=== PATIENT | female | born 1995 | race Two or more races ===

== ENCOUNTER 2022-08-07 08:21 | Inpatient (IN) | payer MEDICAID ==
[2022-08-07] VITALS (13 sets, daily range): BP systolic 81–121; BP diastolic 52–78
[~2022-08-07] VITALS: Ht 157.5 cm; Wt 66.2 kg
[2022-08-07] MEDS ORDERED: LIDOCAINE 2%HCL (LOCAL ANESTH.) INJ 20ML MDV IJ PRN (09:00)
[2022-08-07] MEDS ORDERED: PROMETHAZINE HCL 25 MG/ML 1ML IV PRN (09:00)
[2022-08-07] MEDS ORDERED: PHISODERM TOP SOLN 240ML BTL TOP PRN (09:00)
[2022-08-07] MEDS ORDERED: WITCH HAZEL-GLYCERIN PAD TOP PRN (09:00)
[2022-08-07] MEDS ORDERED: PROMETHAZINE HCL 25 MG/ML 1ML IM PRN (09:00)
[2022-08-07] MEDS ORDERED: DERMOPLAST 60ML BOTTLE TOP PRN (09:00)
[2022-08-07 09:25] LABS: Albumin 2.6 g/dL (3.4-5.0); Calcium 8.2 mg/dL (8.5-10.1)
[2022-08-07 09:28] LABS: BUN/Creatinine Ratio 5.9 (10.0-20.0); Bilirubin, Total 0.4 mg/dL (0.2-1.0); INR 0.98 (0.9-1.15); Partial Thromboplastin Time 27.3 SEC (24.5-34.5); Total Protein 6.2 g/dL (6.4-8.2)
[2022-08-07] MEDS ORDERED: fentaNYL CITRATE 100 MCG/2 ML VL IV PRN (09:30)
[2022-08-07] MEDS: LACTATED RINGER'S 1,000 ML IV SCH ×4 (09:31→22:58)
[2022-08-07 09:32] LABS: Potassium 2.7 mmol/L (3.5-5.1)
[2022-08-07] MEDS ORDERED: POTASSIUM CHL 20 Meq TABLET PO ONE (09:45)
[2022-08-07] MEDS ORDERED: LACT. RINGERS/OXYTOCIN 20UNITS 500 ML IV ONE ×2 (09:45→10:15)
[2022-08-07 09:53] LABS: Urine Bacteria FEW /hpf (None Seen); Urine Blood 2+ /uL (Negative); Urine Hyaline Cast FEW /lpf (0 - 2); Urine Specific Gravity 1.007 (1.001-1.035); Urine WBC 23 /hpf (0 - 5)
[2022-08-07 10:33] LABS: Alcohol, Urine < 3.0 mg/dL (0-10); Amphetamine Screen, Urine NEGATIVE (NEGATIVE); Barbiturate Scree,Urine NEGATIVE (NEGATIVE); Benzodiazephine Screen, Urine NEGATIVE (NEGATIVE); Cannabinoid Screen, Urine NEGATIVE (NEGATIVE); Cocaine Screen, Urine NEGATIVE (NEGATIVE); Opiate Scree,Urine NEGATIVE (NEGATIVE); Phencyclidine Screen, Urine NEGATIVE (NEGATIVE)
[2022-08-07] MEDS ORDERED: HYDR-4902 PO ×2 (12:22)
[2022-08-07] MEDS ORDERED: DOCU-94 PO ×3 (12:22)
[2022-08-07 12:26] LABS: Basophils # (auto) 0 10 ^3/uL (0-0.2); Eosinophils # (auto) 0 10 ^3/uL (0-0.8); Hemoglobin 8.9 g/dL (12.2-16.2); Mean Corpuscular Hemoglobin 21.5 pg (28.0-32.0); Monocytes # (auto) 0.5 10 ^3/uL (0-1.3); Neutrophils # (auto) 5.7 10 ^3/uL (1.6-8.6); White Blood Cell 7.5 10^3/uL (4.4-10.8)
[2022-08-07] MEDS ORDERED: TETRACAINE 1% INJ 2 ML VIAL IJ ONE (12:26)
[2022-08-07 12:28] LABS: Basophils % (auto) 0.4 % (0.0-2.0); Eosinophils % (auto) 0.4 % (0.0-7.0); Hematocrit 28.4 % (36.0-46.0); Lymphocytes # (auto) 1.3 10 ^3/uL (0.4-5.4); Lymphocytes % (auto) 17.2 % (10.0-50.0); Mean Corpuscular Hgb Conc. 31.2 g/dL (32.0-36.0); Mean Corpuscular Volume 68.8 fL (80.0-100.0); Monocytes % (auto) 6.6 % (0.0-12.0); Neutrophils % (auto) 75.4 % (37.0-80.0); Nucleated Red Blood Cells % 0.4 %; Red Blood Cells 4.13 10^6/uL (4.0-5.20); Red Cell Distribution Width 18.1 % (11.8-14.3)
[2022-08-07] MEDS ORDERED: MORPHINE SULF PF 5 MG/10 ML VIAL ONE (12:28)
[2022-08-07] MEDS ORDERED: CLINDAMYCIN 600MG IV 50 ML IV SCH (12:30)
[2022-08-07] MEDS ORDERED: LACT. RINGERS/OXYTOCIN 20UNITS 1,000 ML IV ONE (12:45)
[2022-08-07] MEDS ORDERED: GUM (CHEWING) 1 GUM CHEW CHEW ONE (12:45)
[2022-08-07] MEDS ORDERED: ONDANSETRON HCL 4 MG/2 ML VIAL IV PRN ×2 (12:45→14:30)
[2022-08-07] MEDS ORDERED: CLINDAMYCIN 300MG IV 100 ML IV SCH ×2 (13:00→21:20)
[2022-08-07] MEDS ORDERED: CLINDAMYCIN 300MG IV 50 ML IV ONE ×2 (13:00)
[2022-08-07] MEDS ORDERED: SODIUM CITR/CITRIC ACID ORAL SOLN 30 ML PO SCH (13:00)
[2022-08-07] MEDS ORDERED: CARBOPROST TROMETHAMINE 250 MCG/1ML VIAL IM ONE (13:19)
[2022-08-07] MEDS ORDERED: ePHEDrine SULFATE 50 MG/ML AMP ONE (13:52)
[2022-08-07] MEDS ORDERED: ONDANSETRON HCL 4 MG/2 ML VIAL ONE ×2 (13:52→14:02)
[2022-08-07] MEDS ORDERED: oxyTOCIN 10 UNIT/ML 10ML VIAL ONE (13:53)
[2022-08-07] MEDS ORDERED: KETOROLAC TROMETH 30 MG/ML 1ML VIAL IV PRN (14:30)
[2022-08-07] MEDS ORDERED: diphenhdrAMINE HCL 50 MG/1 ML VL IV PRN (14:30)
[2022-08-07] MEDS ORDERED: DexAMETHasone SOD PHOS 10MG/1ML VIAL INJ IV PRN (14:30)
[2022-08-07] MEDS ORDERED: NALOXONE HCL 0.4 MG/ML VIAL IV PRN (14:30)
[2022-08-07] MEDS ORDERED: NALBUPHINE HCL 10 MG/1ml INJECTION SUBCUT ONE (14:30)
[2022-08-07] MEDS ORDERED: HYDROmorphone HCL 2 MG/ML VL/or syr IV PRN (14:30)
[2022-08-07] MEDS: ACETAMINOPHEN IV 1000 MG/100ML (10MG/ML) IV PRN (17:43)
[2022-08-07] MEDS: ceFAZolin 1GM/50ML 50 ML IV SCH (21:22)
[2022-08-07 21:43] LABS: Basophils # (auto) 0 10 ^3/uL (0-0.2); Basophils % (auto) 0.2 % (0.0-2.0); Eosinophils # (auto) 0 10 ^3/uL (0-0.8); Hematocrit 26.3 % (36.0-46.0); Hemoglobin 8.2 g/dL (12.2-16.2); Lymphocytes % (auto) 7.4 % (10.0-50.0); Mean Corpuscular Hemoglobin 21.5 pg (28.0-32.0); Mean Corpuscular Hgb Conc. 31.3 g/dL (32.0-36.0); Mean Corpuscular Volume 68.9 fL (80.0-100.0); Monocytes # (auto) 0.7 10 ^3/uL (0-1.3); Monocytes % (auto) 4.7 % (0.0-12.0); Neutrophils # (auto) 12.3 10 ^3/uL (1.6-8.6); Neutrophils % (auto) 87.7 % (37.0-80.0); Red Blood Cells 3.81 10^6/uL (4.0-5.20); Red Cell Distribution Width 18.1 % (11.8-14.3)
[2022-08-08] VITALS (15 sets, daily range): BP systolic 79–101; BP diastolic 46–67
[2022-08-08] MEDS: ACETAMINOPHEN IV 1000 MG/100ML (10MG/ML) IV PRN ×2 (01:13→09:17)
[2022-08-08] MEDS: ceFAZolin 1GM/50ML 50 ML IV SCH ×2 (05:21→13:29)
[2022-08-08 06:19] LABS: Basophils # (auto) 0 10 ^3/uL (0-0.2); Basophils % (auto) 0.1 % (0.0-2.0); Eosinophils # (auto) 0 10 ^3/uL (0-0.8); Eosinophils % (auto) 0.1 % (0.0-7.0); Hemoglobin 7.7 g/dL (12.2-16.2); Monocytes # (auto) 0.5 10 ^3/uL (0-1.3); Neutrophils % (auto) 86.1 % (37.0-80.0)
[2022-08-08 06:23] LABS: Hematocrit 24.3 % (36.0-46.0); Lymphocytes % (auto) 9.1 % (10.0-50.0); Mean Corpuscular Hemoglobin 21.7 pg (28.0-32.0); Mean Corpuscular Hgb Conc. 31.5 g/dL (32.0-36.0); Mean Corpuscular Volume 68.9 fL (80.0-100.0); Monocytes % (auto) 4.6 % (0.0-12.0); Neutrophils # (auto) 9.7 10 ^3/uL (1.6-8.6); Red Blood Cells 3.53 10^6/uL (4.0-5.20); Red Cell Distribution Width 18.2 % (11.8-14.3); White Blood Cell 11.3 10^3/uL (4.4-10.8)
[2022-08-08 07:06] LABS: RPR Non Reactive (Non Reactive)
[2022-08-08] MEDS: LACTATED RINGER'S 1,000 ML IV SCH (09:19)
[2022-08-08] MEDS ORDERED: BISACODYL 10 MG RECT SUPP PR PRN (10:30)
[2022-08-08] MEDS ORDERED: HYDROcodone-ACET 5/325MG TAB PO PRN (10:30)
[2022-08-08] MEDS: SIMETHICONE 80 MG CHEWABLE TABLET PO SCH ×3 (12:00→21:47)
[2022-08-08] MEDS: IBUPROFEN 800 MG TAB PO PRN (13:29)
[2022-08-08] MEDS: HYDROcodone-ACET 5/325MG TAB PO PRN ×2 (16:50→23:02)
[2022-08-08] MEDS ORDERED: ASCO500T11 PO (17:56)
[2022-08-08] MEDS ORDERED: FER325T PO (17:56)
[2022-08-08] MEDS ORDERED: PREN-94 PO (17:56)
[2022-08-08] MEDS ORDERED: IBUP-1455 PO (17:56)
[2022-08-08] MEDS: DOCUSATE SOD 100 MG CAP PO SCH (21:47)
[2022-08-08] MEDS: FERROUS SULFATE 325mg EC TAB PO SCH (21:47)
[2022-08-09] MEDS: HYDROcodone-ACET 5/325MG TAB PO PRN (02:57)
[2022-08-09 03:02] VITALS: BP 116/60
[2022-08-09] MEDS: SIMETHICONE 80 MG CHEWABLE TABLET PO SCH ×3 (05:46→18:27)
[2022-08-09 07:00] VITALS: BP 91/57
[2022-08-09] MEDS: IBUPROFEN 800 MG TAB PO PRN ×2 (07:56→17:21)
[2022-08-09] MEDS: FERROUS SULFATE 325mg EC TAB PO SCH (10:00)
[2022-08-09] MEDS ORDERED: DOCUSATE CALCIUM 240 MG CAP PO SCH (10:00)
[2022-08-09] MEDS: DOCUSATE SOD 100 MG CAP PO SCH (10:00)
[2022-08-09 11:10] VITALS: BP 86/48
[2022-08-09 11:20] LABS: Basophils # (auto) 0 10 ^3/uL (0-0.2); Eosinophils # (auto) 0.1 10 ^3/uL (0-0.8); Lymphocytes # (auto) 1.5 10 ^3/uL (0.4-5.4); Lymphocytes % (auto) 13.1 % (10.0-50.0); Monocytes # (auto) 0.5 10 ^3/uL (0-1.3); Monocytes % (auto) 4.6 % (0.0-12.0)
[2022-08-09 11:22] LABS: Basophils % (auto) 0.3 % (0.0-2.0); Eosinophils % (auto) 0.7 % (0.0-7.0); Hematocrit 22.8 % (36.0-46.0); Mean Corpuscular Hemoglobin 21.3 pg (28.0-32.0); Mean Corpuscular Hgb Conc. 30.7 g/dL (32.0-36.0); Mean Corpuscular Volume 69.3 fL (80.0-100.0); Neutrophils # (auto) 9.4 10 ^3/uL (1.6-8.6); Neutrophils % (auto) 81.3 % (37.0-80.0); Red Blood Cells 3.29 10^6/uL (4.0-5.20); Red Cell Distribution Width 18.2 % (11.8-14.3); White Blood Cell 11.6 10^3/uL (4.4-10.8)
[2022-08-09] MEDS ORDERED: SODIUM FERR GLUC 62.5MG/5ML 125 MG in SODIUM CHL 0.9% 100 ML IV STA (11:50)
[2022-08-09] MEDS ORDERED: SODIUM CHLORIDE 0.9% 250 ML IV ONE (12:00)
[2022-08-09 12:06] LABS: Potassium 3.5 mmol/L (3.5-5.1)
[2022-08-09 12:16] LABS: Albumin 2.3 g/dL (3.4-5.0); BUN/Creatinine Ratio 8.5 (10.0-20.0); Bilirubin, Total 0.3 mg/dL (0.2-1.0); Calcium 8.5 mg/dL (8.5-10.1); Total Protein 5.7 g/dL (6.4-8.2)
[2022-08-09 15:00] VITALS: BP 110/73
[2022-08-09] MEDS ORDERED: TETANUS-DIPTH-ACEL PERTUSSIS 0.5ML SYR Tdap IM ONE (17:30)
[2022-08-09 18:30] VITALS: BP 103/61
== END 2022-08-09 19:53 | disposition home or self-care (01) | DRG 540 ==
LOC: UNDOADMOB 08:21 → LDRP 08:21 → OBSVTOIN 08:52 → LDRP 08:52 → INTOOBSV 08:52 → LDRP 08:58
PROVIDERS: ADMIT Obstetrics & Gynecology; ATTEND Obstetrics & Gynecology
PROC: 10D00Z1 Extraction of Products of Conception, Low, Open Approach (ICD-10-PCS; principal; 2022-08-07 12:36)
DX: O77.0 Labor and delivery complicated by meconium in amniotic fluid (principal); O24.429 Gestational diabetes mellitus in childbirth, unspecified control; D64.9 Anemia, unspecified; O76 Abnormality in fetal heart rate and rhythm complicating labor and delivery; Z3A.38 38 weeks gestation of pregnancy; Z37.0 Single live birth; O90.81 Anemia of the puerperium; Z23 Encounter for immunization
CPT/HCPCS: 36415; 59025; 80053; 80307; 81001; 81002; 85025; 85610; 85730; 86592; 86850; 86900; 86901; 86920; 90715; 94760; 94762; 96360; 96361; 96372; G0378; J0131; J0690; J2405; J2590; J3490

== ENCOUNTER 2024-01-29 17:10 | Observation (INO) | payer MEDICAID ==
[~2024-01-29] VITALS: Ht 167.6 cm; Wt 75.7 kg
[~2024-01-29 17:10] MED LIST: ASCO500T11 PO; DOCU-94 PO; FER325T PO; HYDR-4902 PO; IBUP-1455 PO; PREN-94 PO
[2024-01-29] MEDS ORDERED: ACETAMINOPHEN 325 MG TAB PO ONE (18:30)
[2024-01-29] MEDS: LACTATED RINGER'S 1,000 ML IV ONE (19:24)
[2024-01-29] MEDS: ACETAMINOPHEN 500 MG TAB or CAP PO ONE (19:29)
[2024-01-29] MEDS: ceFAZolin 2 GM/D5W50ml 50 ML IV ONE (19:31)
--- NOTE | 2024-01-29 19:51 | DVH ---
EXAM: US OBSTERICAL LIMITED CLINICAL HISTORY: contractions COMPARISON: None TECHNIQUE: Grayscale, color-flow Doppler, and spectral Doppler ultrasound of the pelvis is performed by transabdominal and transvaginal technique. Findings/Impression: Single live intrauterine in vertex presentation with heart rate of 136 bpm. Cervical os appears closed and measures 3.5 cm in length. Placenta is anterior in location without evidence of previa or abruption. VALERIE 22.5 cm.
[2024-01-29 20:20] LABS: COVID19 ANTIGEN SOFIA FIA NEGATIVE (NEGATIVE); Rapid Influenza A Negative (Negative); Rapid Influenza B Negative (Negative)
[2024-01-29 20:29] VITALS: TEMP 99.4
[2024-01-29] MEDS ORDERED: PREN-94 PO (20:41)
[2024-01-29] MEDS ORDERED: AZITTAB PO (20:41)
--- NOTE | 2024-01-29 20:46 | DVHDS2 ---
Physician Discharge Progress N Final Diagnosis: upper respiratory infection Problems List: (1) URI (upper respiratory infection) (2) 34 weeks gestation of Operations or Procedures: Operations or Procedures S: 28yo IUP@34.2wks presents to OB triage with c/o N/V/D since 0900. Declined zofran. Does not feel UCs, just back pain radiating to the front. Denies LOF/VB/GERARDO/vision changes/RUQ pain. Endorses +FM. OB Hx: previous C/S x1. PNC with Dr. Baxter, uncomplicated. O: VSS except fever of 101F initially, then 99.4F prior to D/C NST reactive TOCO: UCs q2-3 min with irritability initially, and none prior to D/C Tylenol 1g PO, 1L LR IV bolus, ancef 2g IVPB x1 given Cooling measures done by RN No CVA tenderness bilaterally Laboratory Tests Test 01/29/24 19:00 Range/Units Influenza Type A Antigen Negative Negative Influenza Type B Antigen Negative Negative SARS-CoV-2 Antigen (Rapid) Negative NEGATIVE Vital Signs Date Time Temp Pulse Resp B/P (MAP) Pulse Ox O2 Delivery O2 Flow Rate FiO2 01/29/24 20:29 99.4 A: 28yo IUP@34.2wks URI P: D/C home [facility]/PTL precautions reviewed Rx sent for Zpak Pt instructed to PO hydrate at home Dr. Pemberton consulted, agrees with POC. Other Interventions Other Interventions [place] [address] Ph: [phone] DIAGNOSTIC IMAGING Diagnostic Imaging Report : [id number] Signed PATIENT: CORINNE VANEGAS ACCT: [id number] UNIT: [id number] : 1995 LOC: [facility] ROOM / BED: [facility] / A AGE / SEX: 28 / F ADM STATUS: ADM IN SERVICE 30 ORDERING PHYSICIAN: TRENT LILLY CNM PROCEDURE(s): OBLTD - OBSTERICAL LIMITED REASON: contractions ORDER NUMBER(s): [id number], ACCESSION NUMBER(s): [id number] EXAM: US OBSTERICAL LIMITED CLINICAL HISTORY: contractions COMPARISON: None TECHNIQUE: Grayscale, color-flow Doppler, and spectral Doppler ultrasound of the pelvis is performed by transabdominal and transvaginal technique. Findings/Impression: Single live intrauterine in vertex presentation with heart rate of 136 bpm. Cervical os appears closed and measures 3.5 cm in length. Placenta is anterior in location without evidence of previa or abruption. VALERIE 22.5 cm. ATED BY: KIMBERLY BROWNING DO DICTATED DATE/TIME: 01/29/241948 SIGNED BY: KIMBERLY BROWNING DO SIGNED DATE/TIME: 01/29/241948 CC: Condition on Discharge: Stable Disposition: Home Discharge Instructions: Diet: Regular Activity: No Restrictions, As Tolerated Medications: see med list Follow Up Care: Specialist: f/u with Dr. Baxter as scheduled on 02/03/24 Discharge Statement: "Patient was advised to return to the ER or call 911 if any headaches, dizziness, shortness of breath, chest pain, abdominal pain, bleeding, fevers, or worsening of medical condition. Patient was counseled about treatment plan, medications, possible side effects, patientverbalized understanding. All questions were answered to the best of my ability. This discharge took greater then 30 minutes in planning, reviewing docum entation, counseling the patient, and discussing with other team members." TRENT LILLY CNM Jan 29, 2024 20:46
== END 2024-01-29 21:25 | disposition home or self-care (01) ==
LOC: LDRP 17:10
PROVIDERS: ADMIT Obstetrics & Gynecology; ATTEND Obstetrics & Gynecology
DX: O60.03 Preterm labor without delivery, third trimester (principal); O21.2 Late vomiting of pregnancy; O99.513 Diseases of the respiratory system complicating pregnancy, third trimester; J06.9 Acute upper respiratory infection, unspecified; R19.7 Diarrhea, unspecified; Z3A.34 34 weeks gestation of pregnancy; Z79.899 Other long term (current) drug therapy; Z20.822 Contact with and (suspected) exposure to COVID-19
CPT/HCPCS: 36415; 59025; 76815; 81002; 87426; 87804; 94760; 96361; 96365; G0378; J0690; 96360

== ENCOUNTER 2024-03-01 04:34 | Inpatient (IN) | payer MEDICAID ==
[~2024-03-01] VITALS: Ht 160 cm; Wt 65.8 kg
[~2024-03-01 04:34] MED LIST changes: -ASCO500T11 PO; +AZITTAB PO; -DOCU-94 PO; -FER325T PO; -HYDR-4902 PO; -IBUP-1455 PO
[2024-03-01 09:43] LABS: Urine Bacteria FEW /hpf (None Seen); Urine Blood Negative /uL (Negative); Urine Clarity Turbid (Clear); Urine Color Light-Yellow (Yellow); Urine Protein, UAD Negative (Negative); Urine Specific Gravity 1.015 (1.001-1.035); Urine Squamous Epithelial Cell MOD /hpf (<5); Urine Urobilinogen Normal (Negative); Urine WBC 1 /hpf (0 - 5)
[2024-03-01 09:46] LABS: Basophils # (auto) 0 10 ^3/uL (0-0.2); Basophils % (auto) 0.3 % (0.0-2.0); Eosinophils # (auto) 0.1 10 ^3/uL (0-0.8); Eosinophils % (auto) 1.4 % (0.0-7.0); Hematocrit 25.4 % (36.0-46.0); Hemoglobin 7.7 g/dL (12.2-16.2); Lymphocytes # (auto) 1.6 10 ^3/uL (0.4-5.4); Lymphocytes % (auto) 25.1 % (10.0-50.0); Mean Corpuscular Hemoglobin 19.6 pg (28.0-32.0); Mean Corpuscular Hgb Conc. 30.4 g/dL (32.0-36.0); Mean Corpuscular Volume 64.3 fL (80.0-100.0); Monocytes # (auto) 0.4 10 ^3/uL (0-1.3); Monocytes % (auto) 6.8 % (0.0-12.0); Neutrophils # (auto) 4.3 10 ^3/uL (1.6-8.6); Neutrophils % (auto) 66.4 % (37.0-80.0); Nucleated Red Blood Cells % 0.3 %; Platelet Count (auto) 242 10^3/uL (140-450); Red Blood Cells 3.96 10^6/uL (4.0-5.20); Red Cell Distribution Width 19.6 % (11.8-14.3); White Blood Cell 6.5 10^3/uL (4.4-10.8)
[2024-03-01 09:52] LABS: Albumin 3.9 g/dL (3.2-4.8); Anion Gap 6 (5-15); Aspartate Aminotransferase 14 U/L (13-40); BUN/Creatinine Ratio 13.8 (10.0-20.0); Bilirubin, Total 0.6 mg/dL (0.2-1.0); Calcium 9.5 mg/dL (8.7-10.4); Carbon Dioxide 23 mmol/L (20-31); Glucose 77 mg/dL (74-106); Sodium 137 mmol/L (136-145); Total Protein 6.4 g/dL (5.7-8.2)
[2024-03-01 10:24] LABS: Amphetamine Screen, Urine Neg (NEGATIVE); Barbiturate Scree,Urine Neg (NEGATIVE); Benzodiazephine Screen, Urine Neg (NEGATIVE); Cannabinoid Screen, Urine Neg (NEGATIVE); Cocaine Screen, Urine Neg (NEGATIVE); Opiate Scree,Urine Neg (NEGATIVE); Phencyclidine Screen, Urine Neg (NEGATIVE)
[2024-03-01 10:25] LABS: Alanine Aminotransferase < 9 U/L (7-40); Alkaline Phosphatase 220 U/L (46-116); Blood Urea Nitrogen 8 mg/dL (9-23); Chloride 108 mmol/L (98-107); Potassium 3.5 mmol/L (3.5-5.1)
[2024-03-01 10:32] LABS: INR 0.92 (0.9-1.15); Partial Thromboplastin Time 25.9 SEC (24.5-34.5); Prothrombin Time 9.8 sec (9.3-11.8)
[2024-03-01 10:50] LABS: Hypochromia Moderate; Tear Drop Cells FEW
[2024-03-01 10:51] LABS: Platelet Estimate Adequate
[2024-03-02] VITALS (18 sets, daily range): BP systolic 85–101; BP diastolic 49–66; PULSE 63–88; RESP 12–20; TEMP 98.4–98.6; O2SAT 94–100
[2024-03-02] MEDS ORDERED: METOCLOPRAMIDE HCL 5MG/ml INJ 2ml VIAL IV ONE (04:00)
[2024-03-02] MEDS ORDERED: LACTATED RINGER'S 1,000 ML IV ONE (04:00)
[2024-03-02] MEDS ORDERED: ceFAZolin 1GM/50ML 50 ML IV ONE (04:00)
[2024-03-02] MEDS ORDERED: SODIUM CHLORIDE 0.9% 1,000 ML IV SCH (04:00)
[2024-03-02] MEDS ORDERED: PHENYLEPHRINE HCL 10 MG/ML VL ONE (07:23)
[2024-03-02] MEDS ORDERED: MORPHINE SULF PF 5 MG/10 ML VIAL ONE (07:23)
[2024-03-02] MEDS ORDERED: GLYCOPYRROLATE 0.2 MG/ML 1ML VIAL ONE (07:23)
[2024-03-02] MEDS ORDERED: oxyTOCIN 10 UNIT/ML 10ML VIAL ONE (07:23)
[2024-03-02] MEDS ORDERED: fentaNYL CITRATE 100 MCG/2 ML VL ONE (07:23)
[2024-03-02] MEDS ORDERED: ePHEDrine SULFATE 50 MG/ML AMP ONE (07:23)
[2024-03-02] MEDS ORDERED: ONDANSETRON HCL 4 MG/2 ML VIAL ONE (07:23)
--- NOTE | 2024-03-02 07:25 | DVHHP ---
ADMIT DATE: 03/02/2024 CHIEF COMPLAINT: Scheduled repeat section. HISTORY OF PRESENT ILLNESS: This is a 28-year-old female 3, para 2, 1 previous section, desires repeat without trial of labor. The patient is 39 weeks' gestation, EDC 03/09/2024. has been uncomplicated other than anemia, her hemoglobin is 7.7. She denies any chest pain, shortness of breath, dizziness or fatigue. PAST MEDICAL HISTORY: Anemia. PAST SURGICAL HISTORY: x 1. MEDICATIONS: vitamins. ALLERGIES: PENICILLIN, UNKNOWN REACTION. FAMILY HISTORY: Negative and noncontributory. SOCIAL HISTORY: The patient is single. Denies any tobacco, alcohol or illicit drug use. REVIEW OF SYSTEMS: Negative as otherwise stated in the history of present illness. PHYSICAL EXAMINATION: GENERAL: She is alert, in no acute distress, appears pale. HEENT: Conjunctivae are pale. Pupils are equal, round, reactive. NECK: Supple, without any palpable thyromegaly. LUNGS: Clear to auscultation bilaterally. HEART: Regular rate and rhythm. ABDOMEN: Gravid, soft, nontender. EXTREMITIES: Without cyanosis deformity or edema. PELVIC: Deferred. OBJECTIVE: heart rate baseline is 120s, moderate variability, accelerations present, no contractions present. ASSESSMENT: * Term intrauterine 39 weeks, previous section x 1, desires repeat. * Microcytic anemia. * Category 1 heart rate pattern. PLAN: The patient will be admitted for scheduled repeat section, possible blood transfusion. The risks, benefits and alternatives to surgery have been discussed with the patient. Informed consent has been obtained. Risks of surgery including anesthesia, risks of scar, pain, bleeding, infection, injury to bowel, bladder, adjacent organs, possible blood transfusion, risks of blood transfusion, such as allergic reactions, blood-borne illnesses have all been discussed with the patient and informed consent has been obtained. DO ELZA Goodman/ADALBERTO TID: [id number] RECEIPT: [id number]
[2024-03-02] MEDS: LACTATED RINGER'S 1,000 ML IV SCH (07:27)
[2024-03-02] MEDS: ceFAZolin 2 GM/D5W50ml 50 ML IV ONE (07:28)
--- NOTE | 2024-03-02 08:42 | DVHOP ---
DATE OF SURGERY: 03/02/2024 PREOPERATIVE DIAGNOSES: * Term intrauterine at 39 weeks, previous x1, desires repeat. * Microcytic anemia, hemoglobin 7.7. FINAL DIAGNOSES: * Term intrauterine at 39 weeks, previous x1, desires repeat. * Microcytic anemia, hemoglobin 7.7. PROCEDURE PERFORMED: Repeat low transverse section via Pfannenstiel skin incision. SURGEON: Jean Baxter DO PATIENT COORDINATOR: Srini Hernandes NP TYPE OF ANESTHESIA: Spinal. ANESTHESIOLOGIST: Ophelia Sanders MD. DESCRIPTION OF FINDINGS: Delivery of a liveborn female , cephalic presentation, clear amniotic fluid, scores of 8 and 9, weight is pending. Normal fallopian tubes, ovaries; normal placenta; normal uterus; thin lower uterine segment with a small 3 cm window noted without rupture of the uterus. Clear amniotic fluid. Single layer uterine closure. TECHNICAL PROCEDURE: After informed consent was obtained, the patient was taken to the operating room where spinal anesthesia was found to be adequate. She was placed in the supine position with a slight leftward tilt. A Pfannenstiel skin incision was made through the prior scar. The incision carried down sharply to the underlying layer of fascia. The rectus muscles were dissected off the rectus fascia. Entry into the peritoneal cavity was performed bluntly. The peritoneal incision was extended superiorly and inferiorly with good visualization of the bladder. There were no adhesions noted. The vesicouterine peritoneum was dissected sharply with Metzenbaum scissors and a bladder flap created digitally. Using a second scalpel, the lower uterine segment was gently incised and extended laterally using bandage scissors. The amniotic membranes were ruptured. The fluid was clear. The baby was then delivered atraumatically. After delivery of the baby, the nose and mouth were suctioned. The cord was clamped and cut and the infant handed off to waiting pediatric team. Cord blood was obtained. The placenta was spontaneously delivered. The uterus was exteriorized and cleared of all clots and debris using moist laparotomy sponges. The uterine incision was repaired in a single layer using #1 PDS in continuous running locking fashion. Excellent tissue approximation and hemostasis was obtained. The uterus was returned to the abdomen. The cul-de-sac and pericolic gutters were cleared of all clots and debris. The abdomen was irrigated with sterile water. Hemostasis was once again confirmed. All instrumentation was removed from the patient's abdomen. SNoW was placed at the lower uterine segment for added hemostasis. I then proceeded to close the rectus fascia using Stratafix #1 PDS in continuous running fashion with good tissue approximation. The subcutaneous tissue was irrigated. Bleeding points controlled with cautery. The subcutaneous tissue was approximated with 2-0 plain gut and the skin closed in subcuticular fashion using 3-0 Monocryl. A dressing of silk was placed over the incision. The patient tolerated the procedure well. Sponge, lap and needle counts were correct x4. INTRAOPERATIVE COMPLICATIONS: None. ESTIMATED BLOOD LOSS: 600 mL. POSTOPERATIVE CONDITION: Stable. SPECIMENS: Cord blood, placenta. BLOOD PRODUCTS: The patient received 1 unit of packed red blood cells intraoperatively. MEDICATIONS: She received 2 grams of Ancef prior to skin incision. DO ELZA Goodman/LANEY TID: [id number] RECEIPT: [id number] MTDD
[2024-03-02] MEDS ORDERED: ONDANSETRON HCL 4 MG/2 ML VIAL IV PRN (09:15)
[2024-03-02] MEDS ORDERED: diphenhdrAMINE HCL 50 MG/1 ML VL IV PRN (09:15)
[2024-03-02] MEDS ORDERED: DexAMETHasone SOD PHOS 10MG/1ML VIAL INJ IV PRN (09:15)
[2024-03-02] MEDS ORDERED: KETOROLAC TROMETH 30 MG/ML 1ML VIAL IV ONE (09:15)
[2024-03-02] MEDS: HYDROcodone-ACET 5/325MG TAB PO PRN (13:43)
[2024-03-02] MEDS ORDERED: KETOROLAC TROMETH 30 MG/ML 1ML VIAL IV PRN (15:15)
[2024-03-02 19:34] LABS: Basophils # (auto) 0 10 ^3/uL (0-0.2); Basophils % (auto) 0.1 % (0.0-2.0); Eosinophils # (auto) 0 10 ^3/uL (0-0.8); Eosinophils % (auto) 0.2 % (0.0-7.0); Hemoglobin 8.4 g/dL (12.2-16.2); Monocytes # (auto) 0.4 10 ^3/uL (0-1.3)
[2024-03-02 19:35] LABS: Hematocrit 26.5 % (36.0-46.0); Lymphocytes % (auto) 10.6 % (10.0-50.0); Mean Corpuscular Hemoglobin 21.1 pg (28.0-32.0); Mean Corpuscular Hgb Conc. 31.9 g/dL (32.0-36.0); Mean Corpuscular Volume 66.3 fL (80.0-100.0); Neutrophils # (auto) 8.2 10 ^3/uL (1.6-8.6); Neutrophils % (auto) 85.1 % (37.0-80.0); Nucleated Red Blood Cells % 0.1 %; Platelet Count (auto) 198 10^3/uL (140-450); White Blood Cell 9.6 10^3/uL (4.4-10.8)
[2024-03-02 19:36] LABS: Red Cell Distribution Width 22.2 % (11.8-14.3)
[2024-03-02] MEDS: IBUPROFEN 800 MG TAB PO PRN (20:10)
[2024-03-02] MEDS: DOCUSATE SOD 100 MG CAP PO SCH (22:32)
[2024-03-03] VITALS (11 sets, daily range): BP systolic 85–108; BP diastolic 44–85; PULSE 59–84; RESP 16–18; TEMP 98.3–98.8; O2SAT 95–99
--- NOTE | 2024-03-03 03:18 | DVHPN2 ---
Progress Note Date Seen: Mar 03, 2024 Subjective POD#1 s/p scheduled repeat C/S at 39 wk Chronic microcytic anemia, s/p blood transfusion x 1 unit PRBC (stable) Doing well. Lochia minimal. Pain controlled. NO N/V vital signs Vital Sign Date Time Temp Pulse Resp B/P (MAP) Pulse Ox O2 Delivery O2 Flow Rate FiO2 03/02/24 23:00 98.4 82 16 97/56 (70) 98 98.4 03/02/24 19:15 Room Air 03/02/24 10:00 0.0 03/02/24 08:49 97 Total Intake and Output 03/02/24 03/02/24 03/03/24 14:59 22:59 06:59 Intake Total 300 ml Output Total 250 ml 1200 ml 700 ml Balance 50 ml -1200 ml -700 ml medications Current Medications Medications Dose Ordered Sig/Iraida Route Start Time Stop Time Status Last Admin Dose Admin Sodium Chloride 1,000 ml @ 125 mls/hr Q8H IV 03/02/24 04:00 Lactated Ringer's 1,000 ml @ 125 mls/hr Q8H IV 03/02/24 04:00 03/02/24 07:27 125 MLS/HR Diphenhydramine HCl 25 mg Q4HP PRN IV 03/02/24 09:15 Ondansetron HCl 4 mg Q4HP PRN IV 03/02/24 09:15 Docusate Sodium 100 mg Q12HR PO 03/02/24 22:00 03/02/24 22:32 100 MG Dimethicone 80 mg QID PRN PO 03/02/24 12:45 Ibuprofen 800 mg Q8HP PRN PO 03/02/24 12:45 03/02/24 20:10 800 MG Acetaminophen/ Hydrocodone Bitart 1 tab Q4HPRN PRN PO 03/02/24 12:45 03/02/24 23:27 1 TAB Acetaminophen/ Hydrocodone Bitart 2 tab Q4HPRN PRN PO 03/02/24 12:45 Iron Sucrose 110 ml @ 110 mls/hr DAILY@1200 IV 03/03/24 12:00 03/07/24 12:59 laboratory and microbiology Laboratory Tests 03/02/24 19:14 03/01/24 09:13 Test 03/01/24 09:13 Range/Units Serum Glucose 77 74-106 mg/dL Objective O: AFVSS Chest: heart and lung sounds normal. Abd soft, non-tender, fundus firm, BS, no rebound or guarding, Incision - dressing and incision clean, dry, intact Ext Neg Homans, Non-tender, edema Lochia - minimal Labs Reviewed Assessment/Plan POD#1 s/p repeat C/S doing well Microcytic Anemia, stable Plan: Pain control Supportive care Ambulate Possible D/C to home tomorrow. Plan discussed with: Patient PONCE EVANS DO Mar 03, 2024 03:18
[2024-03-03] MEDS ORDERED: FERR325T24 PO (03:20)
[2024-03-03] MEDS ORDERED: IBUP-1455 PO (03:20)
[2024-03-03] MEDS ORDERED: HYDR-4902 PO (03:20)
[2024-03-03 04:18] LABS: Basophils # (auto) 0 10 ^3/uL (0-0.2); Basophils % (auto) 0.2 % (0.0-2.0); Eosinophils # (auto) 0 10 ^3/uL (0-0.8); Eosinophils % (auto) 0.6 % (0.0-7.0); Hematocrit 25.6 % (36.0-46.0); Hemoglobin 8.2 g/dL (12.2-16.2); Lymphocytes % (auto) 12.7 % (10.0-50.0); Mean Corpuscular Hemoglobin 21.3 pg (28.0-32.0); Mean Corpuscular Volume 66.5 fL (80.0-100.0); Monocytes # (auto) 0.4 10 ^3/uL (0-1.3); Monocytes % (auto) 5.3 % (0.0-12.0); Neutrophils # (auto) 6.7 10 ^3/uL (1.6-8.6); Neutrophils % (auto) 81.2 % (37.0-80.0); Nucleated Red Blood Cells % 0.2 %; Platelet Count (auto) 196 10^3/uL (140-450); Red Blood Cells 3.85 10^6/uL (4.0-5.20); Red Cell Distribution Width 22.5 % (11.8-14.3); White Blood Cell 8.2 10^3/uL (4.4-10.8)
[2024-03-03 07:06] LABS: RPR Non Reactive (Non Reactive)
[2024-03-03] MEDS: HYDROcodone-ACET 5/325MG TAB PO PRN (08:45)
[2024-03-03] MEDS: IRON SUCROSE COMPLEX 110 ML IV SCH (17:22)
[2024-03-03] MEDS: SIMETHICONE 80 MG CHEWABLE TABLET PO PRN (17:24)
[2024-03-03] MEDS: WITCH HAZEL-GLYCERIN PAD TOP PRN (23:24)
[2024-03-04 03:00] VITALS: BP 88/53; PULSE 78; RESP 16; TEMP 97.9; O2SAT 95
[2024-03-04 03:30] VITALS: BP 91/62
[2024-03-04 08:00] VITALS: BP 99/57; PULSE 74; RESP 16; TEMP 97.9; O2SAT 95
--- NOTE | 2024-03-04 08:38 | DVHDS2 ---
Obstetrics Discharge Summary Obstetrics Discharge Summary Date of Admission: Mar 02, 2024 Date of Discharge: Mar 04, 2024 Reason For Admission: Section (Repeat, scheduled) Procedures: NST Intrapartum Procedures: (LTCS) Procedures: Transfusion (1 unit PRBC), Antibiotics, Hct/date: (03/03/24), Hgb/date: (03/03/24) Operative Complicat: None Discharge Diagnosis: Term -Delivered Discharge Information: Activity (as tolerated, no heavy lifting and nothing in the vagina for 6 weeks), Diet (Routine), Medications (Rx sent), Instructions (Routine), Discharge to (Home), Accompanied by (partner), Discarge date (03/04/24) TRENT LILLY CNM Mar 04, 2024 08:38
--- NOTE | 2024-03-04 08:38 | DVHPN2 ---
Progress Note Date Seen: Mar 04, 2024 Subjective S: bleeding is less, eating food without issues, denies lightheaded/dizziness, pain well controlled with oral medications, no concerns with urinating, passing flatus, no BM yet, ambulating well, vital signs Vital Sign Date Time Temp Pulse Resp B/P (MAP) Pulse Ox O2 Delivery O2 Flow Rate FiO2 03/04/24 08:00 97.9 74 16 99/57 (71) 95 97.9 03/04/24 07:15 Room Air 03/02/24 10:00 0.0 03/02/24 08:49 97 Total Intake and Output 03/03/24 03/03/24 03/04/24 15:00 23:00 07:00 Output Total 600 ml 1150 ml 600 ml Balance -600 ml -1150 ml -600 ml medications Current Medications Medications Dose Ordered Sig/Iraida Route Start Time Stop Time Status Last Admin Dose Admin Docusate Sodium 100 mg Q12HR PO 03/02/24 22:00 03/03/24 22:16 100 MG Dimethicone 80 mg QID PRN PO 03/02/24 12:45 03/03/24 22:16 80 MG Ibuprofen 800 mg Q8HP PRN PO 03/02/24 12:45 03/03/24 22:16 800 MG Acetaminophen/ Hydrocodone Bitart 1 tab Q4HPRN PRN PO 03/02/24 12:45 03/02/24 23:27 1 TAB Acetaminophen/ Hydrocodone Bitart 2 tab Q4HPRN PRN PO 03/02/24 12:45 03/04/24 03:02 2 TAB Witch Kristi 1 pad PRN PRN TOP 03/03/24 22:30 03/03/24 23:24 1 PAD laboratory and microbiology Laboratory Tests 03/03/24 03:59 03/01/24 09:13 Test 03/01/24 09:13 Range/Units Serum Glucose 77 74-106 mg/dL Objective O: VSS Chest: heart sounds normal and lung sounds clear bilaterally Abd: soft, non-tender, fundus at U/firm/midline, active bowel sounds, no rebound or guarding Incision: sylke dressing open to air, old brown drainage noted on left side, dry/intact Ext: Non-tender, No edema, 2+ BLE DTRs Lochia: minimal See lab results s/p 1 unit PRBC transfusion in OR IV iron infusion once on 03/03/24 Problems(with codes): (1) Iron deficiency anemia of mother during (2) Transfusion of blood during current hospitalization (3) S/P repeat low transverse Assessment/Plan A: 28yo now POD#2 s/p Repeat Anemia Rh+ Rubella Immune Pain control with PO medications Bowel regimen P: D/C home today Rx sent to pharmacy precautions and preeclampsia warning signs reviewed F/U with [facility] OB office in 1 week Plan discussed with: Patient, Spouse TRENT LILLY CNM Mar 04, 2024 08:38
[2024-03-04 11:30] VITALS: BP 97/60; PULSE 77; RESP 16; TEMP 98; O2SAT 96
[2024-03-04 13:27] VITALS: BP 97/56; PULSE 55; RESP 18; TEMP 98; O2SAT 97
[2024-03-05 12:06] LABS: Treponema Pallidum Ab LC Non Reactive (Non Reactive)
== END 2024-03-04 13:11 | disposition home or self-care (01) | DRG 540 ==
LOC: UNDOADMIN 03-02 03:45 → LDRP 03-02 03:45 → EDSTATUS 03-02 17:58
PROVIDERS: ADMIT Obstetrics & Gynecology; ATTEND Obstetrics & Gynecology
PROC: 30233N1 Transfusion of Nonautologous Red Blood Cells into Peripheral Vein, Percutaneous Approach (ICD-10-PCS; 2024-03-02)
PROC: 10D00Z1 Extraction of Products of Conception, Low, Open Approach (ICD-10-PCS; principal; 2024-03-02 07:37)
DX: O34.211 Maternal care for low transverse scar from previous cesarean delivery (principal); D50.9 Iron deficiency anemia, unspecified; O99.02 Anemia complicating childbirth; Z3A.39 39 weeks gestation of pregnancy; Z37.0 Single live birth
CPT/HCPCS: 36415; 59025; 80053; 80307; 81001; 81002; 85025; 85610; 85730; 86592; 86780; 86850; 86900; 86901; 86920; 94760; 94762; 96360; 96361; G0378; J1756; J2405; J2590